=== PATIENT | male | born 1985 | race Caucasian/White ===

== ENCOUNTER 2017-04-25 08:48 | Observation (INO) | payer OTHER ==
[2017-04-25] VITALS (10 sets, daily range): BP systolic 113–140; BP diastolic 46–90; PULSE 58–77; RESP 16–20; O2SAT 95–100
[~2017-04-25] VITALS: Ht 175.3 cm; Wt 131.8 kg
[~2017-04-25 08:48] MED LIST: AZIT250T4 PO
--- NOTE | 2017-04-25 09:43 | DRSVH ---
PROCEDURE: X-RAY CHEST ONE VIEW, PORTABLE ([id number]) INDICATIONS: chest pain TECHNIQUE: One view of the chest was acquired. COMPARISON: [facility], CR, XR CHEST 2VW, 12/08/2015, 11:19. FINDINGS: Surgical changes and devices: vehicle monitor technician leads are seen over the chest. Lungs and pleura: No pleural effusions or pneumothorax. Lungs are clear. Mediastinum: Mediastinal contours appear normal. Heart size is normal. Bones and chest wall: No suspicious bony lesions. Overlying soft tissues appear unremarkable. IMPRESSION: Acute disease is not seen in the upright portable chest. Dictated by: Emery Thomas M.D. on 04/25/2017 at 9:41 Approved by: Emery Thomas M.D. on 04/25/2017 at 9:42
[2017-04-25 09:46] LABS: BASOPHILS % (AUTO) 0.3 % (0-3); EOSINOPHILS % (AUTO) 3.6 % (0-5); MONOCYTES % (AUTO) 8.5 % (4-12); Mean Corpuscular Hemoglobin 30.2 pg (27.0-35.0); Mean Corpuscular Volume 91.9 fL (81-100); NEUTROPHILS % (AUTO) 60.2 % (40-74); Platelet Count 273 bil/L (150-400)
--- NOTE | 2017-04-25 09:48 | ED.REPORT ---
HPI-General Illness Date of Service Apr 25, 2017 ED Provider: Maco Owens MD Patient is a 31 year old male with a history of borderline diabetes mellitus and schizoaffective disorder who presents to the ED complaining of mid-sternal chest pain with radiation to either side of his chest onset 0300 this morning. He describes his pain as a constant pressure that waxes and wanes. No known allev/exac factors. He denies SOB, extremity pain, nausea, or any other symptoms. He has no known family history of heart disease. He reports similar symptoms previously, though they've resolved without intervention sooner. Nursing Notes Stated Complaint: CHEST PAIN Chief Complaint: Chest Pain Nursing Notes Reviewed: Yes Allergies: Coded Allergies: lactose (Verified Allergy, Unknown, diarrhea, 04/25/17) Scheduled Fluticasone Propionate (Flovent HFA 220 mcg) 12 Gm Aer.w.adap 2 PUFFS INHALATION HS Scheduled PRN Albuterol Neb Soln (Albuterol Neb Soln) 2.5 Mg/3 Ml Vial.neb 1 DOSE NEB QID PRN PRN For Shortness of Breath Albuterol Sulfate (Ventolin HFA Inhaler) 200 Puff/18 Gm Inhaler 2 PUFFS INHALATION Q4H PRN PRN For Shortness of Breath General Time Seen by MD: 09:02 Chief Complaint Chest pain Hx Obtained From: Patient Arrived By: Walk-in Sudden in Onset?: Yes Onset Occurred: 5 - 8 hours ago Symptom Duration: Waxes and wanes Location: : Chest Quality: Painful Severity: Current: Mild Severity: Maximum: Moderate Associated with: Reports: Chest pain, Denies: Nausea, Pain Pertinent Negative: Pt denies other symptoms Recent Healthcare: No recent doctor visit, No recent hospitalization Similar Sx Previous: Yes Past Medical History Past Medical History Borderline DM ADHD Schizoaffective Reports: Asthma Reports: Depression Past Surgical History Denies Family History Family history of HTN Smoking History Current Every Day Smoker, Light Tobacco Smoker Social History Alcohol Use: "Social" Drug Use: Denies drug use Other Social History: Lives with parents, Local resident Ambulatory Status Independent Review of Systems Full Review of Systems Respiratory: Denies: Shortness of breath Cardiovascular: Reports: Chest pain GI: Denies: Nausea Musculoskeletal: Denies: Extremity pain Complete sys rev & neg: except as marked. Physical Exam Vital Signs Vital Signs Date Time Temp Pulse Resp B/P Pulse Ox O2 Delivery O2 Flow Rate FiO2 04/25/17 12:03 115/47 04/25/17 11:58 66 16 123/46 97 Room Air 04/25/17 10:49 36.5 63 16 113/59 97 Room Air 04/25/17 08:52 36.2 77 18 140/90 99 Room Air Initial VS: Reviewed, Vital signs normal Skin: Warm, Dry Neurologic: Alert, Oriented, Nonfocal General/Constitutional: Awake, Alert, Well developed Head / Eyes: Atraumatic, Normocephalic, PERRL, EOMI ENT: Mucous membranes moist Respiratory / Chest: Breath sounds NL, Breath sounds = bilat, No respiratory distress Chest pain reproducible with palpation Cardiovascular: Heart rate NL, Regular rhythm, Heart sounds NL, No gallop, No murmurs, No rubs, Peripheral circulation NL, Pulses = bilaterally Abdomen: Atraumatic, Soft, Non-tender, No guarding, No rebound, BS normoactive , No distention Upper Extremities Upper Extremity / MS: Neurologic intact, Vascular intact Good strength and sensation in upper extremities. Good radial pulses Lower Extremity / Pelvis / MS: Neurologic intact, Vascular intact Good DP and PT pulses. Good strenth in bilat lower extremities. Interpretation & Diagnostics Lab Results Interpretation Result Diagram: 04/25/17 0932 04/25/17 0932 Test 04/25/17 09:32 04/25/17 12:32 White Blood Count 11.6th/mm3 (3.8-10.1) Red Blood Count 4.57mil/mm3 (4.40-5.80) Hemoglobin 13.8g/dL (13.8-17.2) Hematocrit 42.0% (41.0-50.0) Mean Corpuscular Volume 91.9fL (81-100) Mean Corpuscular Hemoglobin 30.2pg (27.0-35.0) Mean Corpuscular Hemoglobin Concent 32.9% (32.0-37.0) Red Cell Distribution Width 13.5% (12.3-15.4) Platelet Count 273bil/L (150-400) Neutrophils (%) (Auto) 60.2% (40-74) Lymphocytes (%) (Auto) 27.1% (14-46) Monocytes (%) (Auto) 8.5% (4-12) Eosinophils (%) (Auto) 3.6% (0-5) Basophils (%) (Auto) 0.3% (0-3) Prothrombin Time 10.5sec (8.1-12.5) Prothromb Time International Ratio 0.98ratio Activated Partial Thromboplast Time 27.8sec (22.8-33.0) D-Dimer < 0.50mg/L FEU (<0.50) Sodium Level 138mEq/L (134-144) Potassium Level 3.0mEq/L (3.5-5.2) Chloride Level 102mEq/L (97-108) Carbon Dioxide Level 23mmol/L (18-29) Blood Urea Nitrogen 7mg/dL (6-20) Creatinine 0.45mg/dL (0.76-1.27) Estimat Glomerular Filtration Rate 230mL/min (>59) Glucose Level 92mg/dL (60-99) Calcium Level 8.3mg/dL (8.5-10.1) Total Bilirubin 0.4mg/dL (0.0-1.2) Aspartate Amino Transf (AST/SGOT) 29U/L (0-50) Alanine Aminotransferase (ALT/SGPT) 38U/L (0-44) Alkaline Phosphatase 88U/L (25-150) Pro-B-Type Natriuretic Peptide 1359pg/mL (0-86) Total Protein 5.5g/dL (6.4-8.4) Albumin 3.1g/dL (3.4-5.0) Magnesium Level 2.0mg/dL (1.6-2.6) Troponin T 0.010ug/L (0.0-0.011) ECG Interpretation ECG Interpretation: Sinus Rhythm Rate 70 ST elevation, probably normal early repol pattern Normal axis Normal intervals Time: 09:11 Interpreted by: ED physician X-Ray Chest Interpretation Chest Xray Interpretation: IMPRESSION: Acute disease is not seen in the upright portable chest. Dictated by: Emery Thomas M.D. on 04/25/2017 at 9:41 Interpretation / Wet Read by: Interpret - Radiologist CT Chest Interpretation IMPRESSION: 1. No acute disease is seen in the lungs. No acute changes seen in the aorta or great vessels. There is a right-sided aortic arch, known from previous CT scans. 2. No pulmonary emboli. Dictated by: Emery Thomas M.D. on 04/25/2017 at 14:37 Study type: CT pulm angiogram Interpretation / Wet Read by: Interpret - Radiologist Re-Eval/Medical Decision Med Decision/Clinical Course 31M w/ unknown "heart problems" as a child that required "surgery for a bad blood vessel" p/w chest pain since 0300. Doesn't sound ischemic; EKG w/ findings c/w ALESSIA, though BNP elevated here. No prev for comparison. CT neg for PE and no evidence of dissection w/ normal neuro exam. Unclear etiology of presentation, but w/ ongoing pain and elevated BNP, plan admit for further mgmt eval, r/o ACS w/ serial EKG, trop, likely echo and cards consult. Time of Eval: 10:58 Patient Status: Condition unchanged Re-Evaluation/Progress Note: Patient is rechecked. He is stable with no change. Mild dyspnea present in supine position. Time of Eval: 12:36 Patient Status: Condition improved Re-Evaluation/Progress Note: He is informed of the consult with cardiology and the plan to admit. All questions are addressed. Consultation #1: Referral / Consult Name: Chong Jaime MD Consulted With: Cardiology Call Returned at: 12:14 Teacher Aide: Will see patient, Agrees with eval, Agrees with plan Note: Recommends CT Consultation #2: Referral / Consult Name: Vikram Hurst MD Consulted With: Hospitalist Call Returned at: 14:53 Teacher Aide: Will see patient, Agrees with eval, Agrees with plan, Accepts admit Counseled Regarding: Diagnosis, Lab results, Need for admission Discharge & Departure Primary Impression: Chest pain Chest pain type: unspecified Qualified Code: R07.9 - Chest pain, unspecified Disposition: ADMITTED TO HOSPITAL Discharge Condition All VS Reviewed: Yes Condition: Stable Referrals: Becca Wheeler MD (PCP) Kevyn Attestation Portions of this note were transcribed by Suhas Fernandez. I, Dr. Owens personally performed the history, physical exam and medical decision-making; I reviewed and confirmed the accuracy of the information in the transcribed note. Signed by: Kevyn Hong, 04/25/17 [id number]. copies to: Becca Wheeler MD, William B MD Apr 25, 2017 09:48 SERGIO OJEDA Apr 25, 2017 09:59 SUHAS FERNANDEZ Apr 25, 2017 10:15
[2017-04-25 10:06] LABS: TROPONIN T 0.01 ug/L (0.0-0.011)
[2017-04-25 10:11] LABS: D-Dimer < 0.50 mg/L FEU (<0.50); INR 0.98 ratio
[2017-04-25 10:17] LABS: Magnesium 1.8 mg/dL (1.6-2.6)
[2017-04-25] MEDS ORDERED: Potassium Chloride Inj 20 MEQ in Dextrose 5% 250 ML IV ONE (11:00)
[2017-04-25] MEDS ORDERED: ALBU18HF INHALATION (14:40)
[2017-04-25] MEDS ORDERED: FLUT12AE10 INHALATION (14:40)
[2017-04-25] MEDS ORDERED: ALBU2.5V4 NEB (14:40)
--- NOTE | 2017-04-25 14:43 | DRSVH ---
PROCEDURE: CT ANGIO CHEST PULMONARY EMBOLISM ([id number]) INDICATIONS: eval for PE, evidence of dissection; elev BNP TECHNIQUE: After the administration of intravenous contrast, 2 mm thick sections acquired from the pulmonary api roshan to the posterior costophrenic angles. 3-dimensional maximum intensity projection (MIP) coronal a nd sagittal reformats were then acquired through the thorax. For radiation dose reduction, the follo wing was used: automated exposure control, adjustment of mA and/or kV according to patient size. COMPARISON: None. FINDINGS: Image quality: Excellent. Pulmonary arteries: Pulmonary arteries are normal in size, and demonstrate no intraluminal filling d efects to suggest central pulmonary embolism. Lungs and pleura: Lungs are clear. No pleural effusions or pneumothorax. Central and peripheral ai rways are patent. Mediastinum: Heart size is normal, without pericardial effusion. No mediastinal or hilar adenopathy . The aorta is right-sided. Thoracic aorta is normal in caliber and enhancement. Esophagus is lowell l in caliber, without hiatal hernia. Bones and chest wall: No suspicious bony lesions. Ribs and thoracic spine appear intact throughout. Thyroid gland is within normal limits. No axillary or supraclavicular adenopathy. Abdomen: Visualized upper abdominal solid organs appear normal in the early arterial phase of enhanc ement. IMPRESSION: 1. No acute disease is seen in the lungs. No acute changes seen in the aorta or great vessels. There is a right-sided aortic arch, known from previous CT scans. 2. No pulmonary emboli. Dictated by: Emery Thomas M.D. on 04/25/2017 at 14:37 Approved by: Emery Thomas M.D. on 04/25/2017 at 14:41
[2017-04-25] MEDS ORDERED: Ondansetron 2 mg/mL 2 mL Inj IVPUSH PRN (14:55)
--- NOTE | 2017-04-25 15:50 | NUR ---
Admit Arrived to room 249-1 via stretcher. Able to stand and amb indep to bed and for weight. Orientated to room, call light, smoking policy, visitors, dinner and TV - stated understanding. No current c/o chest pain. tele monitor reports SB/SR 58-62. Belongings sent to safe, inhaler sent to pharmacy.
--- NOTE | 2017-04-25 16:49 | NUR ---
Sob pt c/o SOB. reports that at home would use his nebulizer. Also has inhaler - brought down to pharmacy. Requested order for above via text to .
--- NOTE | 2017-04-25 17:00 | PCM.HPMED ---
Subjective Date of Service Apr 25, 2017 Primary Provider: Admitting Physician: Vikram Hurst MD Primary Care Physician: Raquel Haywood Attending Physician: Chong Jaime MD Chief Complaint: chest pain History of Present Illness: 31yo M w/ congenital heart dz, asthma, DM/HTN diet controlled, schizoaffective disorder p/w episode of chest pain. First episode was a month ago, pt had severe "sharp" pain on mid chest, while he was at the store, 5/10 degree, it only lasted few sec and resolved. it was not a/w any other sx, no diaphoresis. Since then, pt has had intermittent chest pain, milder degree. it happened randomly, not a/w eating or exertion. Because of this pain, PCP started aspirin. pt was compliant. Last night, around 3am, pt was awake, sitting on the chair, not particularly emotionally upset or drinking alcohol, pt noticed sudden on set of sever 6/10 lower mid chest pain, "someone was standing on my chest", then it moved to his bilateral side of upper chest, on his abdomen. It only lasted 10sec, then resolved but returned with lesser pain for several hours constantly. pt waited until 8-9am, decided to come to the hospital as pain didn't go away. Pt denied having associated diaphoresis, palpitation, SOB, n/v, blurry vision, GUERRERO. dizziness. pt can walk not many blocks at baseline due to SOB from asthma, not due to chest pain. pt has chronic problems of breathing while laying down, has to use average height of 3- 4pillows, if not pt feels very uncomfortable, sometime woke up with severe SOB, denied orthopnea. pt denied increased abdominal girdle or wt gain or leg swelling. ED VSS, , EKG no st/t chg, CXR, chest CTA showed no PE, no acute findings. labs showed troponinx2 negative, mild leukocytosis, [id number] ROS: No fever, chills, chest discomfort, n/v/c/d. travel, sick contact Review of Systems: Pertinent positives as noted in history of present illness. All other systems were reviewed and are negative Allergies Coded Allergies: lactose (Verified Allergy, Unknown, diarrhea, 04/25/17) Home Medications Aspirin 81 mg daily Albuterol inhalers and nebulizers as needed for difficulty breathing PMH As described above in history of present illness Surgical History heart surgery as an infant Family History father has severe arthritis mother has heart dz, DM Social History Hx Alcohol Use: Yes ("barely any") Hx Substance Use: No (denies) Smoking Status: Current Every Day Smoker (7cig per day for 8-10yrs), Light Tobacco Smoker Exam Vital Signs Vital Sign - Last Date Time Temp Pulse Resp B/P Pulse Ox O2 Delivery O2 Flow Rate FiO2 04/25/17 16:11 68 04/25/17 16:00 36.7 20 119/77 100 Room Air Exam Obese young male, NAD, comfortably laying down on the bed no JVD, MMM, no LAD RRR, nl s1, s2 no mrg CTAB, no w,c S,ND,NT,normoactive BS+ warm, no edema, pulses 2/2 Lab and Diagnostics Result Diagram: 04/25/17 0932 04/25/17 3047 Assessment & Plan Acute, active chest pain, non-anginal, POA, risks factors: smoking, unknown CHD, obesity. no s /s of ACS so far tropsx2 neg, no ischemic chg on EKG. Possibly from PUD with newly started aspirin -will trend troponin one more -lipid panel, a1c for risk stratification -will consider stress test, however given low risk, can do as an outpatient -TTE given hx of CHD, pt is not overloaded on exam, although hx suggestive of possible chronic CHF Chronic, stable HTN, DM diet controlled schizoaffective d/o, mood stable, not psychotic. asthma, not active but pt need upgrade of tx, will do Flovent 2puffs bid, alb prn Dispo: Patient is admitted under observation status with expectation that she will be discharged within 24-48 hours, diet:general dvt ppx:LMWH Full code Time spent 65min Vikram Hurst MD Apr 25, 2017 16:42
[2017-04-25 17:40] LABS: TROPONIN T < 0.010 ug/L (0.0-0.011)
[2017-04-25] MEDS: Albuterol 2.5 mg/3 mL Inhalation Solution NEB PRN (18:20)
--- NOTE | 2017-04-25 19:50 | NUR ---
Echo/Cardio consult Repeat echo complete entry level sales consultant to floor for consult "echo ok!" see notes
[2017-04-25] MEDS: Fluticasone 250 mCg Inhaler INHALATION SCH (20:42)
--- NOTE | 2017-04-25 22:07 | CONS ---
[address] [address] CONSULTATION REPORT PATIENT: JODI GILES : 1985 MR#: [id number] ADMIT: 04/25/2017 JOB ID: [id number] DATE OF SERVICE: 04/25/2017 CARDIOLOGY CONSULTATION NOTE--INITIAL INPATIENT EVALUATION: DATE OF EVALUATION: Thursday, April 25, 2017. CONSULTING PHYSICIAN: Cardiology--Chong Jaime MD. PROBLEMS: 1. Chest pain: a. Highly atypical for ischemia. b. Unremarkable ECG. c. Elevated BNP noted; but serial troponin not elevated. 2. History of congenital heart disease: a. 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 (Surgery may have been at [facility].) CORONARY ARTERY DISEASE RISK FACTORS: 1. History of diet-controlled diabetes. 2. History of diet-controlled hypertension. 3. No history of hyperlipidemia--but note very low HDL, 25. 4. Current cigarette smoker. FAMILY HISTORY: history unclear regarding premature coronary disease. CHIEF COMPLAINT: Chest pain. History of congenital heart disease. HISTORY OF PRESENT ILLNESS: I am glad to meet this 31-year-old man who was admitted to the hospital After he presented to the emergency department because of several hours of chest discomfort today. There was particular concern for cardiac etiology including because of his history of surgery for congenital heart disease in the remote past. The history is difficult because of the patient's atypical affect. (Note history schizoaffective affective disorder.) To me he describes he was awake at 3 a.m. this morning when he noted the onset of moderately severe, 6 intensity on a scale of 10 discomfort in his epigastric subxiphoid area. He describes focal discomfort that was sharp like a needle or finger pushing and with spokes radiating. There was no other radiation of the discomfort or nausea, diaphoresis or dyspnea. The pain lasted for some time and there may be some mild residual currently. I note in the hospitalist's admission history and physical that he also described onset yesterday evening including with some pressure like characteristics that he does not describe to me. He also describes that he was aware of chest discomfort going back several months but particularly about a month ago he noted an episode that was less severe but like a ball or a flip-flop in his epigastric area that lasted 2 seconds then "eased off." The impression of his history is that the chest discomfort is highly atypical for ischemia and coronary disease. He tells me he discussed this chest discomfort a month ago with his primary physician, but then missed an appointment with her. She prescribed aspirin. CARDIAC HISTORY: Otherwise he does not have known cardiac disease other than his history of some problem in infancy. He reports shortly after he had surgery for "artery wrapped around the esophagus." It sounds like a vascular problem and not a cardiac problem. He has not had followup except maybe ECGs since that time. Otherwise he does not have ischemic symptoms such as effort limitation or effort-related symptoms other than mild to moderate dyspnea. He does not have exertional chest discomfort and his current symptoms have been all at rest and not exacerbated by exertion. Current symptoms likewise are not positional or pleuritic. He does not have symptoms of heart failure such as nocturnal dyspnea or edema other than his exertional dyspnea. 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 He has no history of arrhythmia or current symptoms of arrhythmia such as tachy palpitations, presyncope, or syncope. He does describe fleeting "loud heartbeats" that sound like two or three heartbeats in a row at most. He gets some dizziness occasionally which is not orthostatic, but he "leans to one side"; it sounds balance related. Regarding other possible vascular disease, there is no history of CVA or current symptoms of TIA. No claudication although he does have some leg cramps. ALLERGIES: LACTOSE. MEDICATIONS: 1. Aspirin 81 mg daily recently. 2. Albuterol--he uses this for asthma, sounds like frequently but not every day. PAST MEDICAL HISTORY: 1. Asthma--from childhood; he denies severe episodes; he uses albuterol though. 2. History of schizoaffective disorder--no further details. REVIEW OF SYSTEMS: I questioned him about a 13-point review of systems which is unremarkable, noncontributory or negative except as noted including: No constitutional symptoms. No history of thyroid disorder. No other history of pulmonary disorder. No bleeding symptoms. No history of abdominal symptoms including indigestion, hepatitis, jaundice, or ulcer. He does not think his current epigastric symptoms are likely to be indigestion. He occasionally has some "indigestion," which he describes as gas on the right mid abdomen. PERSONAL/SOCIAL HISTORY: Cigarettes--He rolls his own cigarettes and smokes several a day. He has no known COPD. Alcohol--He reports little alcohol use. Drugs--He reports no other use of drugs including "no weed for over 10 years." Family--His mother is alive. Family--He lives with his girlfriend and acts as her cripple chaser. He moved to this area from [place] and previously [place]. FAMILY HISTORY: Noncontributory otherwise. EXAMINATION: GENERAL APPEARANCE: Pleasant, well-developed man with unusual affect: It was hard to wake him up. He had difficult response to questions including it took over a minute to answer how old are you by saying somewhat over 28. He appears comfortable at rest. VITAL SIGNS: Blood pressure 115/47 with heart rate 74. Respiratory rate 16 and unlabored. Afebrile. O2 saturation 96% on room air. Weight reported 290 pounds. NEUROLOGIC AND MENTAL STATUS. No overt focal neurologic defect noted. He is alert, oriented, and conversant with unusual affect as noted. HEENT: PERRL, conjunctivae pink. Sclerae anicteric. Mouth and mucous membranes intact except poor dentition with multiple teeth missing and high-arched palate noted. NECK: Carotid upstroke intact bilaterally without bruit. Jugular venous pressure normal. No palpable thyromegaly. No palpable cervical lymphadenopathy. LUNGS: Abnormal lung exam with rhonchi and some expiratory wheezes on forced expiration. CARDIAC: There is no chest wall tenderness. There is an extensive left lateral thoracotomy scar noted. Cardiac examination otherwise notable for regular rhythm, S4. No aortic ejection sound. S2 splits normally. No other murmur is heard. Overall unremarkable examination. ABDOMEN: Markedly obese. Note also moderate focal epigastric subxiphoid tenderness to palpation which he says does not exactly reproduce his symptoms. Otherwise no hepatosplenomegaly. Extremities: Unremarkable, without edema and pedal pulses intact bilaterally. DIAGNOSTIC STUDIES: Electrocardiogram: The ECG is unchanged from prior ECG and shows sinus rhythm with rightward axis (95 degrees); and minimal anterior ST elevation most consistent with early repolarization. I noted a nonspecific ST saddle appearance in lead V2. Chest x-ray: Chest x-ray reported unremarkable except for right-sided aortic arch. The chest x-ray is not available to review. LABORATORY: CBC shows WBC 11,600, with hemoglobin 13.8, hematocrit 42.0, normal indices and platelet count 273,000. D-dimer not elevated. Chemistries include a potassium low 3.0, with creatinine 0.45. BUN low, 7. Magnesium 1.8 and LFT unremarkable. Cardiac markers include troponin not elevated x3. Note, elevated Pro BNP 1359. TSH and free T4 unremarkable. Lipid panel includes cholesterol total 140, LDL 97, but HDL very low, 25, with triglycerides 90. ASSESSMENT: I discussed the findings, impressions and management considerations with the patient and with the emergency department staff including: Chest pain which is atypical in the setting of history of remote surgery for probable vascular disorder: He is admitted because of concern for the first presentation of chest discomfort which raised a question of cardiac etiology. Concern is also raised because of the unclear history of prior surgery which was thought to be potentially congenital heart disease; but is likely due to vascular problem. The history raises the consideration of a "vascular sling." Overall his chest discomfort is highly atypical for ischemia and his evaluation so far does not suggest acute coronary syndrome in terms of the ECG or troponins. As we discussed etiologies include consideration of GI indigestion related to recently beginning use of aspirin. Also musculoskeletal discomfort is possible and also consider abdominal etiology given the subxiphoid location of the discomfort. I do not find any evidence of other active heart disease or evident sequelae of congenital heart disease. Note he does have rare food sticking that he solves by eating solids. Agree with the caution to rule out acute coronary syndrome but it appears unlikely that this is a cardiac issue. RECOMMENDATIONS: 1. Admit to hospitalist service attending. 2. Your evaluation for etiologies of his discomfort including noncardiac. Consider lipase and amylase. 3. Consider PE--note, CT PE protocol was done. Did not reveal PE. Might review this study for vascular anatomy. Note, right aortic arch which likely does not have any active consequence. 4. Doubt he needs aspirin chronically--consider CV risk stratification according to the 2013 AHA CV risk calculator. Discontinue aspirin otherwise. 5. Cardiology followup-- Would see cardiology in followup to consider stress test (which may not be mandatory); and to consider his fleeting palpitations (Holter can be considered). 6. Please obtain outside old records of his surgery if possible. 7. Please reconsult for ongoing Cardiology followup.
[2017-04-26 00:05] VITALS: PULSE 60; RESP 18; O2SAT 99
[2017-04-26] MEDS: Albuterol 2.5 mg/3 mL Inhalation Solution NEB PRN (00:05)
[2017-04-26 00:06] VITALS: BP 129/75; PULSE 73; RESP 19; O2SAT 98
[2017-04-26 05:18] VITALS: PULSE 62
[2017-04-26 06:04] VITALS: BP 136/90; PULSE 60; RESP 18; O2SAT 96
[2017-04-26] MEDS: Fluticasone 250 mCg Inhaler INHALATION SCH (08:25)
[2017-04-26 08:37] VITALS: PULSE 71
--- NOTE | 2017-04-26 09:08 | DRSVH ---
[facility] [address] [place] [address] Echocardiogram Report Name: JODI GILES Study Date: 04/25/2017 Height: 69 in Hospital Exam Location: [facility] Weight: 290 lb Gender: Male BSA: 2.4 m2 : 1985 Age: 31 yrs BP: 119/77 mmHg Reason For Study: Chest pain History: aortic surgery as child, smoker Ordering Physician: Performed By[facility] Interpretation Summary The study quality was technically difficult. The left ventricle is normal in size. The ejection fraction is estimated to be 60-65%.Flattened septum is consistent with RV pressure overload. The right ventricle is not well visualized. The right ventricle is mildly dilated.Right ventricular systolic function is at the lower limits of normal. The right ventricle appears to be hypertrophied. There is mild tricuspid regurgitation. The right ventricular systolic pressure is estimated at 42 mmHg assuming a right atrial pressure of 8 mm Hg. There is no Doppler evidence for an interatrial shunt. The aortic arch not visualized. The ascending aorta is normal in size. Procedure: A two-dimensional transthoracic echocardiogram with color flow and Doppler was performed. The study quality was technically difficult. Comparison is made with the echocardiogram of 12/29/2014. The patient was in normal sinus rhythm during the exam. Left Ventricle: The left ventricle is normal in size. Left ventricular wall thickness is borderline increased. A false chord is noted (normal variant). The ejection fraction is estimated to be 60-65%. There are no obvious focal wall motion abnormalities noted but poor endocardial definition reduces the sensitivity for the detection of such. Flattened septum is consistent with RV pressure overload. The E/E'is normal. Right Ventricle: The right ventricle is not well visualized. The right ventricle is mildly dilated. The right ventricle appears to be hypertrophied. Right ventricular systolic function is at the lower limits of normal. Atria: Both atria are normal in size. There is no Doppler evidence for an interatrial shunt. Mitral Valve: The mitral valve leaflets are slightly calcified. There is trace mitral regurgitation. Aortic Valve: The aortic valve opens well. The aortic valve is not well visualized. There is no aortic valve stenosis. No aortic regurgitation is present. Tricuspid Valve: The tricuspid valve is not well visualized, but is grossly normal. There is mild tricuspid regurgitation. The right ventricular systolic pressure is estimated at 42 mmHg assuming a right atrial pressure of 8 mm Hg. Pulmonic Valve: The pulmonic valve is not well seen, but is grossly normal. There is trace pulmonic regurgitation. Great Vessels: The aortic root is normal size. The ascending aorta is normal in size. The aortic arch could not be visualized. The pulmonary artery is normal size. The IVC is dilated (diameter is greater than 2.1 cm) yet it collapses greater than 50% with a sniff. This suggests a right atrial pressure of 8 mm Hg. Pericardium/ Pleura There is no pericardial effusion. MMode/2D Measurements & Calculations LVIDd: 5.4 cm RA long axis LVOT diam LVIDs: 3.4 cm LA A2 area: 19.6 cm FS: 37.8 % LA A4 area: 17.0 cm RA area Ao root diam IVSd: 0.84 cm LA length (vol): 4.8 cm LVPWd: 1.2 cm LA vol: 58.7 ml : 13.0 cm Aortic Jxn LA vol index RA vol: 34.3 ml RA asc Aorta : 14.2 mm2 Diam: 3.1 cm IVC diam: 2.8 cm LV chakraborty. diameter/BSA LV sys. diameter/BSA RVD1 (basal) (cm/m^2): 2.3 (cm/m^2): 1.4 Doppler Measurements & Calculations Ao V2 max MV E max gregory MV E/A: 2.3 TR max gregory : 153.0 cm/sec : 97.1 cm/sec Med Peak E' Gregory : 290.0 cm/sec Ao max PG MV A max gregory TR max PG : 9.4 mmHg : 43.0 cm/sec E/E' med: 9.4 : 33.6 mmHg Ao mean PG MV P1/2t: 47.5 msec Lat Peak E' Gregory PA V2 max : 104.6 cm/sec LVOT Max Gregory E/E' lat: 6.9 PA mean PG : 95.6 cm/sec E/e' average: 8.2 PA Accel Time ZEKE(I,D): 2.8 cm : 0.15 sec sev ratio MV dec time MV P1/2t max gregory Ao V2 mean LV V1 max PG : 0.16 sec : 93.3 cm/sec MVA(P1/2t): 4.6 cm2 Ao V2 VTI: 28.5 cm LV V1 VTI ZEKE(V,D): 2.6 cm2 : 18.6 cm PA V2 mean ZEKE indexed to BSA : 64.5 cm/sec (cm^2/m^2): 1.1 Reading Physician:CLIFFORD
--- NOTE | 2017-04-26 10:18 | PCM.DIMED ---
Discharge Instructions Date of Service Apr 26, 2017 Dates of Hospitalization Apr 25, 2017 at 15:36 Discharge Diagnosis Discharge Diagnosis chest pain, non-anginal, likely GI origin or musculosketal Medication Instructions Additional med instructions Please discontinue Aspirin as you don't have good benefit given your age, risks You can try Prilosec or Zantac OTC to see if your symptoms improve Please increase Flovent 2puffs twice a day regularly as your asthma is not optimally controlled. Diet Discharge Diet: No restrictions Activity Discharge Activity: No restrictions Call your provider Call your provider for: Shortness of breath, Chest pain Patient Instructions Patient Instructions You were hospitalized with chest pain, concerning for heart attack. Multiple work-ups didn't show any signs of heart attack. You were also seen by Trimming Press Operator, Dr. Jaime Please follow up with your doctor in 2weeks for follow up, stress test may be indicated if chest pain continues, Follow-up Provider: Raquel Haywood Follow-up with PCP in: 2 weeks Vikram Hurst MD Apr 26, 2017 10:18
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
--- NOTE | 2017-04-26 11:25 | NUR ---
Discharge Pt A&O x 4. IV dc'd catheter intact. D/C instructions given, questions answered. Pt belongings retrieved from the safe, and pharmacy. Put up dressed independently. Family accompanied pt out. Pt refused w/c ride, wanted to walk out. RN walked pt to elevators. Pt had steady gait, no issues noted.
== END 2017-04-26 11:20 | disposition home or self-care (01) ==
LOC: SED 08:48 → MOC 15:36
PROVIDERS: ADMIT Internal Medicine; ATTEND Internal Medicine
DX: R07.89 Other chest pain (principal); I10 Essential (primary) hypertension; E11.9 Type 2 diabetes mellitus without complications; F25.9 Schizoaffective disorder, unspecified; J45.909 Unspecified asthma, uncomplicated; F17.210 Nicotine dependence, cigarettes, uncomplicated; F90.9 Attention-deficit hyperactivity disorder, unspecified type; F32.9 Major depressive disorder, single episode, unspecified; E66.9 Obesity, unspecified; Z79.51 Long term (current) use of inhaled steroids; Z79.82 Long term (current) use of aspirin
CPT/HCPCS: 36415; 71010; 71275; 80053; 80061; 82550; 82948; 83036; 83735; 83880; 84439; 84443; 84484; 85025; 85378; 85610; 85730; 93005; 94640; 94664; 96361; 96374; 99285; C8929; G0378; J1650; J3480; J7050; J7613; Q9967

== ENCOUNTER 2017-06-20 04:22 | Emergency (ER) | payer OTHER ==
[~2017-06-20] VITALS: Ht 175.3 cm; Wt 128.2 kg
[~2017-06-20 04:22] MED LIST changes: +ALBU18HF INHALATION; +ALBU2.5V4 NEB; -AZIT250T4 PO; +FLUT12AE10 INHALATION
[2017-06-20 04:26] VITALS: BP 139/78; PULSE 69; RESP 20; O2SAT 98
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
[2017-06-20] MEDS ORDERED: Albuterol-Ipratropium 3 mL Inhalation Solution NEB ONE (04:55)
[2017-06-20] MEDS ORDERED: Albuterol 2.5 mg/3 mL Inhalation Solution NEB ONE (04:55)
[2017-06-20 05:02] VITALS: PULSE 71; RESP 28; O2SAT 99
[2017-06-20] MEDS ORDERED: Dexamethasone 20 mg/2 mL Oral Solution PO ONE (05:45)
[2017-06-20] MEDS ORDERED: AZIT250T4 PO (06:27)
[2017-06-20] MEDS ORDERED: PRE20 PO (06:27)
[2017-06-20] MEDS ORDERED: ALBU2.5V4 INHALATION (06:27)
== END 2017-06-20 07:12 | disposition home or self-care (01) ==
LOC: SED 04:22
DX: J45.901 Unspecified asthma with (acute) exacerbation (principal); R73.03 Prediabetes; F17.200 Nicotine dependence, unspecified, uncomplicated; Z91.018 Allergy to other foods
CPT/HCPCS: 94664; 99284; J7613; J7620

== ENCOUNTER 2017-07-29 21:16 | Emergency (ER) | payer OTHER ==
[~2017-07-29] VITALS: Ht 175.3 cm; Wt 131.8 kg
[~2017-07-29 21:16] MED LIST changes: +ALBU2.5V4 INHALATION; +AZIT250T4 PO; +PRE20 PO
[2017-07-29 21:20] VITALS: BP 122/85; PULSE 91; RESP 26; O2SAT 93
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
[2017-07-29] MEDS ORDERED: MethylprednisoLONE Sodium Succinate 62.5 mg/mL 2 mL Inj IVPUSH ONE (21:45)
[2017-07-29] MEDS ORDERED: Albuterol 2.5 mg/3 mL Inhalation Solution NEB ONE (21:45)
[2017-07-29] MEDS ORDERED: Albuterol-Ipratropium 3 mL Inhalation Solution NEB ONE (21:45)
[2017-07-29 21:52] LABS: BASOPHILS % (AUTO) 0.2 % (0-3); EOSINOPHILS % (AUTO) 3.9 % (0-5); MONOCYTES % (AUTO) 9.9 % (4-12); Mean Corpuscular Hemoglobin 30.2 pg (27.0-35.0); Mean Corpuscular Volume 91.4 fL (81-100); NEUTROPHILS % (AUTO) 58.3 % (40-74); Platelet Count 267 bil/L (150-400)
[2017-07-29 22:11] VITALS: PULSE 81; RESP 18; O2SAT 98
[2017-07-29 22:15] LABS: TROPONIN T 0.01 ug/L (0.0-0.011)
[2017-07-29] MEDS ORDERED: cefTRIAXone Inj 2,000 MG in Dextrose 5% Minibag Plus 50 ML IV ONE (22:55)
[2017-07-29] MEDS ORDERED: Azithromycin Inj 500 MG in Dextrose 5% w/Vial Mate 250 ML IV ONE (22:55)
[2017-07-29] MEDS ORDERED: PRE20 PO (23:19)
[2017-07-29] MEDS ORDERED: AZIT250T4 PO (23:19)
[2017-07-29 23:30] LABS: APPEARANCE,URINE CLEAR (CLEAR,HAZY); COLOR,URINE YELLOW (YELLOW); OCCULT BLOOD,URINE NEGATIVE (NEGATIVE); PH,URINE 6.5 (5.0-8.0); UROBILINOGEN,URINE NORMAL (NORMAL)
[2017-07-29 23:36] VITALS: BP 147/44; PULSE 85; RESP 16; O2SAT 98
[2017-07-30 01:14] VITALS: BP 150/60; PULSE 71; RESP 18; O2SAT 96
--- NOTE | 2017-07-30 08:30 | DRSVH ---
PROCEDURE: X-RAY CHEST ONE VIEW, PORTABLE ([id number]) INDICATIONS: cough, wheezing TECHNIQUE: One view of the chest was acquired. COMPARISON: None. FINDINGS: Surgical changes and devices: None. Lungs and pleura: No pleural effusions or pneumothorax. Lungs are clear. Mediastinum: Mediastinal contours appear normal. Heart size is normal. Bones and chest wall: No suspicious bony lesions. Overlying soft tissues appear unremarkable. IMPRESSION: Source of productive cough is not seen. Dictated by: Jasson Lares M.D. on 07/30/2017 at 8:29 Approved by: Jasson Lares M.D. on 07/30/2017 at 8:29
== END 2017-07-30 01:28 | disposition home or self-care (01) ==
LOC: SED 21:16
DX: J45.901 Unspecified asthma with (acute) exacerbation (principal); J18.1 Lobar pneumonia, unspecified organism; F32.9 Major depressive disorder, single episode, unspecified; F90.9 Attention-deficit hyperactivity disorder, unspecified type; F17.200 Nicotine dependence, unspecified, uncomplicated; Z91.011 Allergy to milk products
CPT/HCPCS: 36415; 71010; 80053; 81000; 83880; 84484; 85025; 93005; 94644; 96365; 96368; 96375; 99285; J0456; J0696; J2930; J7613; J7620